=== PATIENT | female | born 1975 | race Caucasian/White ===

== ENCOUNTER → 2019-12-06 08:25 | Outpatient (CLI) | payer OTHER, SELFPAY ==
--- NOTE | 2019-12-06 08:26 | DI.RAD.S_ITS ---
PROCEDURE: XR HAND LT MIN 3V INDICATIONS: 3RD DIGIT SWELLING AND PAIN WITH decreased range of motion. TECHNIQUE: 3 views of the hand(s) acquired. COMPARISON: None. FINDINGS: Bones: In this patient with this given history, scrutiny is given to the 3rd finger. No focal bony abnormality can be seen of the 3rd finger. No fractures or dislocations. No fractures or dislocations are seen elsewhere. Carpal bones are normally aligned. No suspicious bony lesions. Soft tissues: Soft tissue swelling is seen of the 3rd finger. IMPRESSION: Mild generalized soft tissue swelling can be seen of the 3rd finger, without a displaced fracture identified. If it would be helpful for clinical management decision making, please consider a dedicated finger protocol MRI for further evaluation (assuming that there is no contraindication). Dictated by: Georges Morris M.D. on 12/06/2019 at 8:47 Approved by: Georges Morris M.D. on 12/06/2019 at 8:48
== END ==
PROVIDERS: PCP Naturopath; Referring Provider Physician Assistant; Visit Provider Physician Assistant
DX: S69.92XA Unspecified injury of left wrist, hand and finger(s), initial encounter (principal); M79.645 Pain in left finger(s); M79.89 Other specified soft tissue disorders; X58.XXXA Exposure to other specified factors, initial encounter
CPT/HCPCS: 73130